=== PATIENT | female | born 1940 | race Caucasian/White ===

== ENCOUNTER 2017-02-21 11:05 | Emergency (ER) | payer MEDICARE, OTHER ==
[2017-02-21 10:40] LABS: BASO % 0.2 % (0-2); EOS % 3.7 % (0-7); EOSINOPHIL ABSOLUTE COUNT 0.2 tho/cmm (0.0-0.7); HCT-HEMATOCRIT 37.2 % (34.0-49.0); HGB-HEMOGLOBIN 12.6 gm/dl (12.0-15.5); IMMATURE GRANULOCYTES ABSOLUTE 0.01 tho/cmm (0-0.03); IMMATURE GRANULOCYTES PERCENT 0.2 % (0-0.3); LYMPH % 29.5 % (20-45); LYMPH ABSOLUTE COUNT 1.4 tho/cmm (0.8-4.5); MCH (MEAN CORPUSCULAR HGB) 29.8 pg (28.0-32.0); MCHC MEAN CORPUSCULAR HGB CONC 33.9 % (32.0-36.0); MCV (MEAN CELL VOLUME) 87.9 fl (82.0-96.0); MONOCYTE ABSOLUTE COUNT 0.2 tho/cmm (0.0-1.2); NEUTROPHILS % 61.4 % (40-80); PLATELET COUNT 185 tho/cmm (150-450); RED BLOOD COUNT 4.23 mil/cmm (4.00-5.20); WHITE BLOOD COUNT 4.8 tho/cmm (4.0-10.0)
[2017-02-21 10:48] LABS: ANION GAP 12 mmol/L (0-20); BLOOD UREA NITROGEN 22 mg/dl (6-24); CARBON DIOXIDE-VENOUS 25 mmol/L (22-32); CHLORIDE 109 mmol/l (96-110); CREATININE 1.11 mg/dl (0.50-1.10); GLUCOSE 117 mg/dL (70-110); POTASSIUM 4.5 mmol/L (3.7-5.1); SODIUM 141 mmol/L (135-145); eGFR VALUE FOR BLACK 56 mL/Min
[~2017-02-21 11:05] MED LIST: ARNUITY ELLIP100 MCG INH; FOLGARD RX TAB1 EACH PO; GLUCOPHAGE XR500 M1 PO; GLUCOPHAGE1000 M1 PO; JANUVIA100 M1 PO; LOSARTAN POTAS100 M1 PO; NORVASC10 M2 PO; PLAVIX75 M1 PO; SIMVASTATIN20 M1 PO; VICTOZA 2-0.6 MG/0.1 SC; ZINC50 M2 PO; ZOCOR20 M1 PO
== END 2017-02-21 11:58 ==
LOC: EDMED 11:05
PROVIDERS: Emergency Medicine
DX: H81.10 Benign paroxysmal vertigo, unspecified ear (principal); R27.0 Ataxia, unspecified; E11.9 Type 2 diabetes mellitus without complications; I10 Essential (primary) hypertension; Z88.1 Allergy status to other antibiotic agents; Z88.0 Allergy status to penicillin; Z88.2 Allergy status to sulfonamides; Z88.8 Allergy status to other drugs, medicaments and biological substances; J45.909 Unspecified asthma, uncomplicated; J44.9 Chronic obstructive pulmonary disease, unspecified